=== PATIENT | male | born 1975 | race African-American/Black ===

== ENCOUNTER 2017-07-17 22:10 | Emergency (ER) | payer OTHER ==
[~2017-07-17] VITALS: Ht 185.4 cm; Wt 112.5 kg
[2017-07-17] MEDS ORDERED: OMEPRAZOLE40 MG PO (23:40)
[2017-07-17] MEDS ORDERED: ONDANSETRON HCL4 M2 PO (23:40)
[2017-07-17] MEDS ORDERED: IBUPROFEN 600600 M1 PO (23:40)
[2017-07-17] MEDS ORDERED: CARAFATE 1 GM TA1 G1 PO (23:40)
[2017-07-18 00:51] VITALS: BP 133/87
== END 2017-07-18 00:52 | disposition home or self-care (01) ==
LOC: ER 22:10
DX: K22.8 Other specified diseases of esophagus (principal); Z88.6 Allergy status to analgesic agent